=== PATIENT | male | born 1970 | race Caucasian/White ===

== ENCOUNTER 2023-07-17 01:57 | Emergency (ER) | payer OTHER ==
[~2023-07-17] VITALS: Ht 188 cm; Wt 101.0 kg
[~2023-07-17 01:57] MED LIST: ACET-2080 PO; METH-812 PO
[2023-07-17 02:03] VITALS: TEMP 98.5
[2023-07-17] MEDS ORDERED: ACETAMINOPHEN 500 MG TABLET PO ONE (02:15)
[2023-07-17 03:33] VITALS: BP 126/76; PULSE 72; RESP 15
== END 2023-07-17 04:50 | disposition home or self-care (01) ==
LOC: EMS 01:57
DX: S93.602A Unspecified sprain of left foot, initial encounter (principal); F12.90 Cannabis use, unspecified, uncomplicated; Z90.49 Acquired absence of other specified parts of digestive tract; Z98.890 Other specified postprocedural states; Z88.6 Allergy status to analgesic agent; W22.8XXA Striking against or struck by other objects, initial encounter; Y93.89 Activity, other specified; Y92.89 Other specified places as the place of occurrence of the external cause; Y99.8 Other external cause status
CPT/HCPCS: 99283

== ENCOUNTER 2023-08-22 01:06 | Emergency (ER) | payer OTHER ==
[~2023-08-22] VITALS: Ht 188 cm; Wt 100.0 kg
[2023-08-22 01:33] VITALS: BP 107/66; PULSE 82; RESP 18; TEMP 97.8
== END 2023-08-22 06:25 | disposition home or self-care (01) ==
LOC: EMS 01:06
DX: S83.8X1A Sprain of other specified parts of right knee, initial encounter (principal); F12.90 Cannabis use, unspecified, uncomplicated; Z90.49 Acquired absence of other specified parts of digestive tract; Z98.890 Other specified postprocedural states; Z88.6 Allergy status to analgesic agent; X58.XXXA Exposure to other specified factors, initial encounter; Y93.89 Activity, other specified; Y92.89 Other specified places as the place of occurrence of the external cause; Y99.8 Other external cause status
CPT/HCPCS: 99283

== ENCOUNTER 2024-04-22 23:29 | Emergency (ER) | payer OTHER ==
[~2024-04-22] VITALS: Ht 188 cm; Wt 100.0 kg
[2024-04-23] VITALS: TEMP 98.5
[2024-04-23 00:10] VITALS: BP 143/94; O2SAT 94
[2024-04-23 00:15] LABS: COVID AG,FIA SOURCE NASAL SWAB
[2024-04-23 00:37] LABS: BASOPHILS % (AUTO) 1.3 % (0.0-2.0); EOSINOPHILS % (AUTO) 5.5 % (1.0-6.0); HEMATOCRIT 47.2 % (41-53); LYMPHOCYTES # (AUTO) 1.8 K/uL (1.0-4.8); LYMPHOCYTES % (AUTO) 24.8 % (22.0-44.0); MEAN CORPUSCULAR HEMOGLOBIN 31.5 pg (26.0-34.0); MEAN CORPUSCULAR HGB CONC 33.9 G/dL (31.0-37.0); MEAN CORPUSCULAR VOLUME 93 fL (80-100); MONOCYTES # (AUTO) 0.5 K/uL (0.1-1.0); MONOCYTES % (AUTO) 7.2 % (2.0-9.0); NEUTROPHILS # (AUTO) 4.6 K/uL (1.8-7.7); NEUTROPHILS % (AUTO) 61.2 % (40.0-70.0); PLATELET COUNT (AUTO) 278 K/uL (150-450); RED BLOOD CELL COUNT(AUTO) 5.08 MIL/uL (4.50-5.90); RED CELL DISTRIBUTION WIDTH 13.1 % (11.5-14.5); WHITE BLOOD COUNT (AUTO) 7.5 K/uL (4.5-11.0)
[2024-04-23 00:39] LABS: SARS-COV2 (COVID) ANTIGEN,FIA Negative (Negative)
[2024-04-23 00:40] LABS: INFLUENZA TYPE A NEGATIVE FOR TYPE A (NEGATIVE); INFLUENZA TYPE B NEGATIVE FOR TYPE B (NEGATIVE)
[2024-04-23 00:50] LABS: ANION GAP 11 mmol/L (8-16); CALCIUM, TOTAL 8.8 mg/dL (8.8-10.5); CARBON DIOXIDE 26 mmol/L (22-29); CHLORIDE 103 mmol/L (98-107); CREATININE 0.99 mg/dL (0.60-1.30); GLOMERULAR FILTR. RATE CALC > 60 mL/min (>60); GLUCOSE,RANDOM 128 mg/dL (70-110); POTASSIUM 4.2 mmol/L (3.5-5.1); SODIUM SERUM 140 mmol/L (136-145); UREA NITROGEN, BLOOD 14 mg/dL (7-18)
[2024-04-23 01:00] VITALS: PULSE 91; RESP 18; O2SAT 95
[2024-04-23] MEDS: IPRATROPIUM BROMIDE 0.5 MG/2.5 ML NEB SOLUTION NEB ONE (01:04)
[2024-04-23] MEDS: ALBUTEROL SULFATE 2.5 MG/0.5 ML NEB SOLUTION NEB ONE (01:04)
[2024-04-23] MEDS: ALBUTEROL SULFATE HFA 90 MCG/PUFF 8 GM INHALER IH ONE (01:04)
[2024-04-23 01:10] VITALS: PULSE 91; RESP 18; O2SAT 95
[2024-04-23] MEDS ORDERED: AZIT250T9 PO (01:14)
[2024-04-23 01:25] VITALS: PULSE 93; RESP 20; O2SAT 99
[2024-04-23] MEDS: PredniSONE 20 MG TABLET PO ONE (01:25)
[2024-04-23 01:28] VITALS: PULSE 96; RESP 20; O2SAT 99
== END 2024-04-23 01:42 | disposition home or self-care (01) ==
LOC: EMS 23:29
DX: J45.901 Unspecified asthma with (acute) exacerbation (principal); R05.9 Cough, unspecified; F12.90 Cannabis use, unspecified, uncomplicated; Z88.6 Allergy status to analgesic agent; Z20.822 Contact with and (suspected) exposure to COVID-19
CPT/HCPCS: 99283; 87426; 80048; 85025; 87804; 36415; 94640; J7512; J3535; 99285